=== PATIENT | female | born 1960 | race Caucasian/White ===

== ENCOUNTER 2018-12-02 16:43 | Inpatient (IN) ==
[2018-12-02 18:09] LABS: Basophils % 0.2 %; Nucleated Red Blood Cells 0.5 /100 WBC (0)
[2018-12-02 18:10] LABS: Eosinophils # 0.1 K/mcL (0.0-0.6); Eosinophils % 0.6 %; Hematocrit 15.6 % (35.3-44.9); Immature Granulocytes % 0.5 % (0-4); Lymphocytes # 1.2 K/mcL (0.6-4.6); Lymphocytes % 14.3 %; Mean Corpuscular HGB Conc 29.5 g/dL (31.6-35.5); Mean Corpuscular Hemoglobin 25.8 pg (28.0-33.3); Mean Corpuscular Volume 87.6 fL (83.0-100.0); Mean Platelet Volume 9.4 fL (9.4-12.4); Monocytes # 0.6 K/mcL (0.0-1.3); Monocytes % 6.7 %; Neutrophils # 6.5 K/mcL (1.6-8.9); Platelet Count 348 K/mcL (140-400); Red Blood Count 1.78 M/mcL (3.82-4.97); Red Cell Distribution Width 14.8 % (11.5-14.5); Segmented Neutrophils % 77.7 %
[2018-12-02 18:14] LABS: Hemoglobin 4.6 g/dL (11.5-15.4)
--- NOTE | 2018-12-02 18:15 | Emergency Department Note ---
Disposition Clinical Impression: Vaginal bleeding Disposition: Still a Patient Condition: Serious Forms: ED Satisfaction Letter Time of Disposition: 19:16 General Adult HPI - General Chief complaint: ED Vaginal Bleeding Stated complaint: Vaginal Bleeding Time Seen by Provider: 12/02/18 17:26 Source: patient Limitations: no limitations - History of Present Illness Pain Scale: 5 - Related Data Home Medications Medication Instructions Recorded Confirmed Amlodipine Besylate 2.5 mg PO DAWIT 06/21/18 08/18/18 Furosemide [Lasix] 20 mg PO DAILY 06/21/18 08/18/18 Metoprolol Succinate [Toprol Xl] 25 mg PO DAILY 06/21/18 08/18/18 Omeprazole [PriLOSEC] 40 mg PO DAILY 06/21/18 08/18/18 Venlafaxine XR (24 HR) [Effexor Xr] 150 mg PO DAILY 06/21/18 08/18/18 Ventolin Hfa 108 mcg IH Q6HR PRN 06/21/18 08/18/18 buPROPion HCl [Zyban] 300 mg PO DAILY 06/21/18 08/18/18 clonazePAM [Clonazepam] 0.5 mg PO DAILY 06/21/18 08/18/18 Previous Rx's Medication Instructions Recorded Clindamycin [Cleocin] 150 mg PO Q6HR #7 capsule 08/18/18 Allergies Allergy/AdvReac Type Severity Reaction Status Date / Time ciprofloxacin [From Cipro] AdvReac See Verified 11/27/15 09:46 Comments Penicillins [PCN] AdvReac See Verified 11/27/15 09:46 Comments sertraline [From Zoloft] AdvReac Confusion Verified 11/27/15 09:46 Sulfa (Sulfonamide AdvReac See Verified 11/27/15 09:46 Antibiotics) Comments Past Medical History - Past Medical History Medical history: Reports: asthma, coronary artery disease, GERD, hypertension Surgical history: Reports: , herniorrhaphy, orthopedic, other Psychiatric history: Reports: depression - Social History Smoking Status: Never smoker Smokeless Tobacco Status: No Alcohol use: Reports: none Drug use: Reports: none Physical Exam - General Limitations: no limitations General appearance: alert Course Vital Signs Temperature 98.4 F 12/02/18 16:45 Pulse Rate 89 12/02/18 16:45 Respiratory Rate 18 06/01/19 16:45 Blood Pressure 138/69 06/01/19 16:45 O2 Sat by Pulse Oximetry 100 12/02/18 16:45 Temperature 98.4 F 12/02/18 16:45 Pulse Rate 83 12/02/18 19:12 Respiratory Rate 16 12/02/18 19:12 Blood Pressure 139/73 12/02/18 19:12 O2 Sat by Pulse Oximetry 100 12/02/18 19:12 Oxygen Delivery Oxygen Delivery Room Air Medical Decision Making - Lab Data Result diagrams: 12/02/18 17:51 12/02/18 17:51 Lab Results 12/02/18 12/02/18 12/02/18 Range/Units 17:51 17:51 17:51 WBC 8.4 (4.3-11.1) K/mcL RBC 1.78 L (3.82-4.97) M/mcL Hgb 4.6 L* (11.5-15.4) g/dL Hct 15.6 L (35.3-44.9) % MCV 87.6 (83.0-100.0) fL MCH 25.8 L (28.0-33.3) pg MCHC 29.5 L (31.6-35.5) g/dL RDW 14.8 H (11.5-14.5) % Plt Count 348 (140-400) K/mcL MPV 9.4 (9.4-12.4) fL Immature Gran % 0.5 (0-4) % Seg Neutrophils % 77.7 % Lymphocytes % 14.3 % Monocytes % 6.7 % Eosinophils % 0.6 % Basophils % 0.2 % Neutrophils # 6.5 (1.6-8.9) K/mcL Lymphocytes # 1.2 (0.6-4.6) K/mcL Monocytes # 0.6 (0.0-1.3) K/mcL Eosinophils # 0.1 (0.0-0.6) K/mcL Basophils # 0.0 (0.0-0.2) K/mcL Nucleated RBCs/100 WBC 0.5 H (0) /100 WBC PT 22.8 H (9.4-12.1) Seconds INR 2.0 APTT 34.5 (26.0-36.0) Seconds Sodium 137 (136-145) mEq/L Potassium 4.0 (3.5-5.1) mEq/L Chloride 106 (98-107) mEq/L Carbon Dioxide 21 L (23-29) mEq/L BUN 13 (6-20) mg/dL Creatinine 0.98 (0.60-1.20) mg/dL Est GFR ( Amer) > 60 (> 60) Est GFR (Non-Af Amer) 58 L (> 60) BUN/Creatinine Ratio 13 (6-26) Glucose 107 H (70-105) mg/dL Calculated Osmolality 285 (280-300) Calcium 8.6 (8.6-10.3) mg/dL Troponin I < 0.03 (< 0.04) ng/mL Blood Type Antibody Screen Crossmatch 12/02/18 Range/Units 17:52 WBC (4.3-11.1) K/mcL RBC (3.82-4.97) M/mcL Hgb (11.5-15.4) g/dL Hct (35.3-44.9) % MCV (83.0-100.0) fL MCH (28.0-33.3) pg MCHC (31.6-35.5) g/dL RDW (11.5-14.5) % Plt Count (140-400) K/mcL MPV (9.4-12.4) fL Immature Gran % (0-4) % Seg Neutrophils % % Lymphocytes % % Monocytes % % Eosinophils % % Basophils % % Neutrophils # (1.6-8.9) K/mcL Lymphocytes # (0.6-4.6) K/mcL Monocytes # (0.0-1.3) K/mcL Eosinophils # (0.0-0.6) K/mcL Basophils # (0.0-0.2) K/mcL Nucleated RBCs/100 WBC (0) /100 WBC PT (9.4-12.1) Seconds INR APTT (26.0-36.0) Seconds Sodium (136-145) mEq/L Potassium (3.5-5.1) mEq/L Chloride (98-107) mEq/L Carbon Dioxide (23-29) mEq/L BUN (6-20) mg/dL Creatinine (0.60-1.20) mg/dL Est GFR ( Amer) (> 60) Est GFR (Non-Af Amer) (> 60) BUN/Creatinine Ratio (6-26) Glucose (70-105) mg/dL Calculated Osmolality (280-300) Calcium (8.6-10.3) mg/dL Troponin I (< 0.04) ng/mL Blood Type B POSITIVE Antibody Screen NEGATIVE Crossmatch See Detail Critical Care Time Critical Care Time: Yes Total Critical Care Time: 40 Attestation: Critical care performed: Time is exclusive of separately billable procedures. Time includes: direct patient care, patient reassessment, coordination of patient care, interpretation of data (laboratory data, radiology data, and respiratory data), review of patient's medical records, medical consultation and documentation of patient care. Procedures included in critical care time: Procedures excluded from critical care time: Attestation Statement - Attestation Attestation: I examined this patient and my medical decision-making was reviewed with the Resident Physician. I agree with the documented findings, disposition and treatment plan as described except to the extent set forth below. Patient to the ED with vaginal bleeding. Onset in October. It is progressively getting worse. She is bleeding on and off. She is now bleeding through a pad in less than an hour. Patient had not had a period in 6 months before this started. On exam she is pale. Abdomen soft with some mild lower abdominal tenderness.. Plan. Basic labs to type and screen. Ultrasound. We will discuss with BOILER OPERATOR. Hemoglobin is 4. Transfusion ordered. Patient is agreeable to this. Patient be admitted for transfusion. Ultrasound is still pending at this time. Patient is signed out to doctors Maritza and Evette Bravo pending ultrasound results and ad mission for transfusion. EKG normal sinus at 79. Normal ST segments. Normal voltage. Motion artifact. Unchanged from EKG in 2017.
[2018-12-02 18:17] LABS: Prothrombin Time 22.8 Seconds (9.4-12.1)
[2018-12-02 18:20] LABS: Activated Partial Thrombo Time 34.5 Seconds (26.0-36.0)
[2018-12-02 18:25] LABS: BUN/Creatinine Ratio 13 (6-26); Blood Urea Nitrogen 13 mg/dL (6-20); Calcium 8.6 mg/dL (8.6-10.3); Carbon Dioxide 21 mEq/L (23-29); Chloride 106 mEq/L (98-107); Glucose 107 mg/dL (70-105); Osmolality,Calculated 285 (280-300); Sodium 137 mEq/L (136-145); eGFR For Non-African Americans 58 (> 60)
[2018-12-02 18:33] LABS: Troponin I < 0.03 ng/mL (< 0.04)
--- NOTE | 2018-12-02 18:37 | Emergency Department Note ---
Disposition Forms: ED Satisfaction Letter General Adult HPI - General Chief complaint: ED Vaginal Bleeding Stated complaint: Vaginal Bleeding Time Seen by Provider: 12/02/18 17:26 Source: patient Limitations: no limitations Nursing Notes Reviewed: Yes Vital Signs Reviewed: Yes - History of Present Illness Pain Scale: 5 - Related Data Home Medications Medication Instructions Recorded Confirmed Amlodipine Besylate 2.5 mg PO DAWIT 06/21/18 08/18/18 Furosemide [Lasix] 20 mg PO DAILY 06/21/18 08/18/18 Metoprolol Succinate [Toprol Xl] 25 mg PO DAILY 06/21/18 08/18/18 Omeprazole [PriLOSEC] 40 mg PO DAILY 06/21/18 08/18/18 Venlafaxine XR (24 HR) [Effexor Xr] 150 mg PO DAILY 06/21/18 08/18/18 Ventolin Hfa 108 mcg IH Q6HR PRN 06/21/18 08/18/18 buPROPion HCl [Zyban] 300 mg PO DAILY 06/21/18 08/18/18 clonazePAM [Clonazepam] 0.5 mg PO DAILY 06/21/18 08/18/18 Previous Rx's Medication Instructions Recorded Clindamycin [Cleocin] 150 mg PO Q6HR #7 capsule 08/18/18 Allergies Allergy/AdvReac Type Severity Reaction Status Date / Time ciprofloxacin [From Cipro] AdvReac See Verified 11/27/15 09:46 Comments Penicillins [PCN] AdvReac See Verified 11/27/15 09:46 Comments sertraline [From Zoloft] AdvReac Confusion Verified 11/27/15 09:46 Sulfa (Sulfonamide AdvReac See Verified 11/27/15 09:46 Antibiotics) Comments Past Medical History - Past Medical History Medical history: Reports: asthma, coronary artery disease, GERD, hypertension Surgical history: Reports: , herniorrhaphy, orthopedic, other Psychiatric history: Reports: depression - Social History Smoking Status: Never smoker Smokeless Tobacco Status: No Alcohol use: Reports: none Drug use: Reports: none Physical Exam - General Limitations: no limitations General appearance: alert Course Vital Signs Temperature 98.4 F 12/02/18 16:45 Pulse Rate 89 12/02/18 16:45 Respiratory Rate 18 12/02/18 16:45 Blood Pressure 138/69 12/02/18 16:45 O2 Sat by Pulse Oximetry 100 12/02/18 16:45 Temperature 98.4 F 12/02/18 16:45 Pulse Rate 89 12/02/18 16:45 Respiratory Rate 18 12/02/18 16:45 Blood Pressure 138/69 12/02/18 16:45 O2 Sat by Pulse Oximetry 100 12/02/18 16:45 Oxygen Delivery Oxygen Delivery Room Air Medical Decision Making - Lab Data Result diagrams: 12/02/18 17:51 12/02/18 17:51 Lab Results 12/02/18 12/02/18 12/02/18 Range/Units 17:51 17:51 17:51 WBC 8.4 (4.3-11.1) K/mcL RBC 1.78 L (3.82-4.97) M/mcL Hgb 4.6 L* (11.5-15.4) g/dL Hct 15.6 L (35.3-44.9) % MCV 87.6 (83.0-100.0) fL MCH 25.8 L (28.0-33.3) pg MCHC 29.5 L (31.6-35.5) g/dL RDW 14.8 H (11.5-14.5) % Plt Count 348 (140-400) K/mcL MPV 9.4 (9.4-12.4) fL Immature Gran % 0.5 (0-4) % Seg Neutrophils % 77.7 % Lymphocytes % 14.3 % Monocytes % 6.7 % Eosinophils % 0.6 % Basophils % 0.2 % Neutrophils # 6.5 (1.6-8.9) K/mcL Lymphocytes # 1.2 (0.6-4.6) K/mcL Monocytes # 0.6 (0.0-1.3) K/mcL Eosinophils # 0.1 (0.0-0.6) K/mcL Basophils # 0.0 (0.0-0.2) K/mcL Nucleated RBCs/100 WBC 0.5 H (0) /100 WBC PT 22.8 H (9.4-12.1) Seconds INR 2.0 APTT 34.5 (26.0-36.0) Seconds Sodium 137 (136-145) mEq/L Potassium 4.0 (3.5-5.1) mEq/L Chloride 106 (98-107) mEq/L Carbon Dioxide 21 L (23-29) mEq/L BUN 13 (6-20) mg/dL Creatinine 0.98 (0.60-1.20) mg/dL Est GFR ( Amer) > 60 (> 60) Est GFR (Non-Af Amer) 58 L (> 60) BUN/Creatinine Ratio 13 (6-26) Glucose 107 H (70-105) mg/dL Calculated Osmolality 285 (280-300) Calcium 8.6 (8.6-10.3) mg/dL Troponin I < 0.03 (< 0.04) ng/mL Blood Type Crossmatch 12/02/18 Range/Units 17:52 WBC (4.3-11.1) K/mcL RBC (3.82-4.97) M/mcL Hgb (11.5-15.4) g/dL Hct (35.3-44.9) % MCV (83.0-100.0) fL MCH (28.0-33.3) pg MCHC (31.6-35.5) g/dL RDW (11.5-14.5) % Plt Count (140-400) K/mcL MPV (9.4-12.4) fL Immature Gran % (0-4) % Seg Neutrophils % % Lymphocytes % % Monocytes % % Eosinophils % % Basophils % % Neutrophils # (1.6-8.9) K/mcL Lymphocytes # (0.6-4.6) K/mcL Monocytes # (0.0-1.3) K/mcL Eosinophils # (0.0-0.6) K/mcL Basophils # (0.0-0.2) K/mcL Nucleated RBCs/100 WBC (0) /100 WBC PT (9.4-12.1) Seconds INR APTT (26.0-36.0) Seconds Sodium (136-145) mEq/L Potassium (3.5-5.1) mEq/L Chloride (98-107) mEq/L Carbon Dioxide (23-29) mEq/L BUN (6-20) mg/dL Creatinine (0.60-1.20) mg/dL Est GFR ( Amer) (> 60) Est GFR (Non-Af Amer) (> 60) BUN/Creatinine Ratio (6-26) Glucose (70-105) mg/dL Calculated Osmolality (280-300) Calcium (8.6-10.3) mg/dL Troponin I (< 0.04) ng/mL Blood Type B POSITIVE Crossmatch See Detail Attestation Statement - Attestation Attestation: I examined this patient and my medical decision-making was reviewed with the Resident Physician. I agree with the documented findings, disposition and treatment plan as described except to the extent set forth below.
[2018-12-02] MEDS ORDERED: 0.9 % Sodium Chloride 250 ML ONE (19:21)
--- NOTE | 2018-12-02 19:41 | Emergency Department Note ---
Disposition Clinical Impression: Vaginal bleeding Anemia Qualifiers: Anemia type: unspecified type Qualified Code(s): D64.9 - Anemia, unspecified Disposition: Admitted As Inpatient Condition: Fair Referrals: Esperanza Gutierrez CNP [Primary Care Provider] - Forms: ED Satisfaction Letter Time of Disposition: 19:41 General Adult HPI - General Chief complaint: ED Vaginal Bleeding Stated complaint: Vaginal Bleeding Time Seen by Provider: 12/02/18 17:26 Source: patient Limitations: no limitations - History of Present Illness Pain Scale: 5 - Related Data Home Medications Medication Instructions Recorded Confirmed Amlodipine Besylate 2.5 mg PO DAWIT 06/21/18 08/18/18 Furosemide [Lasix] 20 mg PO DAILY 06/21/18 08/18/18 Metoprolol Succinate [Toprol Xl] 25 mg PO DAILY 06/21/18 08/18/18 Omeprazole [PriLOSEC] 40 mg PO DAILY 06/21/18 08/18/18 Venlafaxine XR (24 HR) [Effexor Xr] 150 mg PO DAILY 06/21/18 08/18/18 Ventolin Hfa 108 mcg IH Q6HR PRN 06/21/18 08/18/18 buPROPion HCl [Zyban] 300 mg PO DAILY 06/21/18 08/18/18 clonazePAM [Clonazepam] 0.5 mg PO DAILY 06/21/18 08/18/18 Previous Rx's Medication Instructions Recorded Clindamycin [Cleocin] 150 mg PO Q6HR #7 capsule 08/18/18 Allergies Allergy/AdvReac Type Severity Reaction Status Date / Time ciprofloxacin [From Cipro] AdvReac See Verified 11/27/15 09:46 Comments Penicillins [PCN] AdvReac See Verified 11/27/15 09:46 Comments sertraline [From Zoloft] AdvReac Confusion Verified 11/27/15 09:46 Sulfa (Sulfonamide AdvReac See Verified 11/27/15 09:46 Antibiotics) Comments Past Medical History - Past Medical History Medical history: Reports: asthma, coronary artery disease, GERD, hypertension Surgical history: Reports: , herniorrhaphy, orthopedic, other Psychiatric history: Reports: depression - Social History Smoking Status: Never smoker Smokeless Tobacco Status: No Alcohol use: Reports: none Drug use: Reports: none Physical Exam - General Limitations: no limitations General appearance: alert Course Vital Signs Temperature 98.4 F 12/02/18 16:45 Pulse Rate 89 12/02/18 16:45 Respiratory Rate 18 12/02/18 16:45 Blood Pressure 138/69 12/02/18 16:45 O2 Sat by Pulse Oximetry 100 12/02/18 16:45 Temperature 98.4 F 12/02/18 16:45 Pulse Rate 83 12/02/18 19:12 Respiratory Rate 16 12/02/18 19:12 Blood Pressure 139/73 12/02/18 19:12 O2 Sat by Pulse Oximetry 100 12/02/18 19:12 Oxygen Delivery Oxygen Delivery Room Air Medical Decision Making - Lab Data Result diagrams: 12/02/18 17:51 12/02/18 17:51 Lab Results 12/02/18 12/02/18 12/02/18 Range/Units 17:51 17:51 17:51 WBC 8.4 (4.3-11.1) K/mcL RBC 1.78 L (3.82-4.97) M/mcL Hgb 4.6 L* (11.5-15.4) g/dL Hct 15.6 L (35.3-44.9) % MCV 87.6 (83.0-100.0) fL MCH 25.8 L (28.0-33.3) pg MCHC 29.5 L (31.6-35.5) g/dL RDW 14.8 H (11.5-14.5) % Plt Count 348 (140-400) K/mcL MPV 9.4 (9.4-12.4) fL Immature Gran % 0.5 (0-4) % Seg Neutrophils % 77.7 % Lymphocytes % 14.3 % Monocytes % 6.7 % Eosinophils % 0.6 % Basophils % 0.2 % Neutrophils # 6.5 (1.6-8.9) K/mcL Lymphocytes # 1.2 (0.6-4.6) K/mcL Monocytes # 0.6 (0.0-1.3) K/mcL Eosinophils # 0.1 (0.0-0.6) K/mcL Basophils # 0.0 (0.0-0.2) K/mcL Nucleated RBCs/100 WBC 0.5 H (0) /100 WBC PT 22.8 H (9.4-12.1) Seconds INR 2.0 APTT 34.5 (26.0-36.0) Seconds Sodium 137 (136-145) mEq/L Potassium 4.0 (3.5-5.1) mEq/L Chloride 106 (98-107) mEq/L Carbon Dioxide 21 L (23-29) mEq/L BUN 13 (6-20) mg/dL Creatinine 0.98 (0.60-1.20) mg/dL Est GFR ( Amer) > 60 (> 60) Est GFR (Non-Af Amer) 58 L (> 60) BUN/Creatinine Ratio 13 (6-26) Glucose 107 H (70-105) mg/dL Calculated Osmolality 285 (280-300) Calcium 8.6 (8.6-10.3) mg/dL Troponin I < 0.03 (< 0.04) ng/mL Blood Type Antibody Screen Crossmatch 12/02/18 Range/Units 17:52 WBC (4.3-11.1) K/mcL RBC (3.82-4.97) M/mcL Hgb (11.5-15.4) g/dL Hct (35.3-44.9) % MCV (83.0-100.0) fL MCH (28.0-33.3) pg MCHC (31.6-35.5) g/dL RDW (11.5-14.5) % Plt Count (140-400) K/mcL MPV (9.4-12.4) fL Immature Gran % (0-4) % Seg Neutrophils % % Lymphocytes % % Monocytes % % Eosinophils % % Basophils % % Neutrophils # (1.6-8.9) K/mcL Lymphocytes # (0.6-4.6) K/mcL Monocytes # (0.0-1.3) K/mcL Eosinophils # (0.0-0.6) K/mcL Basophils # (0.0-0.2) K/mcL Nucleated RBCs/100 WBC (0) /100 WBC PT (9.4-12.1) Seconds INR APTT (26.0-36.0) Seconds Sodium (136-145) mEq/L Potassium (3.5-5.1) mEq/L Chloride (98-107) mEq/L Carbon Dioxide (23-29) mEq/L BUN (6-20) mg/dL Creatinine (0.60-1.20) mg/dL Est GFR ( Amer) (> 60) Est GFR (Non-Af Amer) (> 60) BUN/Creatinine Ratio (6-26) Glucose (70-105) mg/dL Calculated Osmolality (280-300) Calcium (8.6-10.3) mg/dL Troponin I (< 0.04) ng/mL Blood Type B POSITIVE Antibody Screen NEGATIVE Crossmatch See Detail Attestation Statement - Attestation Attestation: I examined this patient and my medical decision-making was reviewed with the Resident Physician. I agree with the documented findings, disposition and treatment plan as described except to the extent set forth below. accepted sign out from Dr. Saleh (day team) and plan is to folowu on pelvic ultrasound and then consult with OBGYN. She will require transfusion as she is 4.9 on hgb and is currently being tranfused 2 units. Otherwise stable. And then admit to medicine to OBGYN
--- NOTE | 2018-12-02 19:45 | Emergency Department Note ---
Disposition Clinical Impression: Vaginal bleeding Anemia Qualifiers: Anemia type: unspecified type Qualified Code(s): D64.9 - Anemia, unspecified Disposition: Admitted As Inpatient Condition: Fair Referrals: Esperanza Gutierrez CNP [Primary Care Provider] - Forms: ED Satisfaction Letter Time of Disposition: 19:50 General Adult HPI - General Chief complaint: ED Vaginal Bleeding Stated complaint: Vaginal Bleeding Time Seen by Provider: 12/02/18 17:26 Source: patient Mode of arrival: ambulatory Limitations: no limitations Nursing Notes Reviewed: Yes Vital Signs Reviewed: Yes - History of Present Illness HPI Narrative: Patient is a 58-year-old female currently on Xeralto for a DVT presents to the ER for evaluation of vaginal bleeding that began the first week of October. She states since that time she has had somewhat continuous but waxing and waning intensity of vaginal bleeding and has a follow-up appointment next Tuesday however she starting to feel lightheaded and have chest pain with exertion and her family's notes that she appears pale. States she has never had a pelvic ultrasound before. Pain Scale: 5 - Related Data Home Medications Medication Instructions Recorded Confirmed Amlodipine Besylate 2.5 mg PO DAWIT 06/21/18 08/18/18 Furosemide [Lasix] 20 mg PO DAILY 06/21/18 08/18/18 Metoprolol Succinate [Toprol Xl] 25 mg PO DAILY 06/21/18 08/18/18 Omeprazole [PriLOSEC] 40 mg PO DAILY 06/21/18 08/18/18 Venlafaxine XR (24 HR) [Effexor Xr] 150 mg PO DAILY 06/21/18 08/18/18 Ventolin Hfa 108 mcg IH Q6HR PRN 06/21/18 08/18/18 buPROPion HCl [Zyban] 300 mg PO DAILY 06/21/18 08/18/18 clonazePAM [Clonazepam] 0.5 mg PO DAILY 06/21/18 08/18/18 Previous Rx's Medication Instructions Recorded Clindamycin [Cleocin] 150 mg PO Q6HR #7 capsule 08/18/18 Allergies Allergy/AdvReac Type Severity Reaction Status Date / Time ciprofloxacin [From Cipro] AdvReac See Verified 11/27/15 09:46 Comments Penicillins [PCN] AdvReac See Verified 11/27/15 09:46 Comments sertraline [From Zoloft] AdvReac Confusion Verified 11/27/15 09:46 Sulfa (Sulfonamide AdvReac See Verified 11/27/15 09:46 Antibiotics) Comments All systems ED: reviewed and negative except as stated. Review of Systems: As Per HPI Constitutional: Denies: fever Cardiovascular: Denies: chest pain Respiratory: Reports: dyspnea. Denies: cough, sputum production Gastrointestinal: Denies: abdominal pain, nausea, vomiting, diarrhea Genitourinary: Reports: abnormal menses Past Medical History - Past Medical History Attestation: Yes The following information was validated with the patient. Medical history: Reports: asthma, coronary artery disease, GERD, hypertension Surgical history: Reports: , herniorrhaphy, orthopedic, other Psychiatric history: Reports: depression - Social History Smoking Status: Never smoker Smokeless Tobacco Status: No Alcohol use: Reports: none Drug use: Reports: none Physical Exam CONSTITUTIONAL: Alert and oriented X3. Pale in color. HEAD: Normocephalic; atraumatic. EYES: PERRL, no scleral icterus. NOSE: The nose is normal in appearance without rhinorrhea RESP: Normal chest excursion with respiration; breath sounds clear and equal bilaterally; no wheezes, rhonchi, or rales CARD: Regular rhythm, without murmurs, rub or gallop ABD: Non-distended; non-tender, soft,without rigidity, rebound or guarding SKIN: Normal for age and race; warm and dry; no apparent lesions - General Limitations: no limitations General appearance: alert Course Course Narrative: Patient underwent evaluation for anemia as well as a transvaginal ultrasound to evaluate her endometrial stripe. Her hemoglobin was in the range of for such she was ordered a type and screen as well as 2 packed red blood cell units. Ultrasound was pending in signed out to the night team. Vital Signs Temperature 98.4 F 12/02/18 16:45 Pulse Rate 89 12/02/18 16:45 Respiratory Rate 18 12/02/18 16:45 Blood Pressure 138/69 12/02/18 16:45 O2 Sat by Pulse Oximetry 100 12/02/18 16:45 Temperature 98.4 F 12/02/18 16:45 Pulse Rate 83 12/02/18 19:12 Respiratory Rate 16 12/02/18 19:12 Blood Pressure 139/73 12/02/18 19:12 O2 Sat by Pulse Oximetry 100 12/02/18 19:12 Oxygen Delivery Oxygen Delivery Room Air Medical Decision Making - Medical Records Medical records reviewed: Yes I reviewed the patient's medical records. - Lab Data Lab results reviewed: Yes I reviewed the patient's lab results. Result diagrams: 12/02/18 17:51 12/02/18 17:51 Lab Results 12/02/18 12/02/18 12/02/18 Range/Units 17:51 17:51 17:51 WBC 8.4 (4.3-11.1) K/mcL RBC 1.78 L (3.82-4.97) M/mcL Hgb 4.6 L* (11.5-15.4) g/dL Hct 15.6 L (35.3-44.9) % MCV 87.6 (83.0-100.0) fL MCH 25.8 L (28.0-33.3) pg MCHC 29.5 L (31.6-35.5) g/dL RDW 14.8 H (11.5-14.5) % Plt Count 348 (140-400) K/mcL MPV 9.4 (9.4-12.4) fL Immature Gran % 0.5 (0-4) % Seg Neutrophils % 77.7 % Lymphocytes % 14.3 % Monocytes % 6.7 % Eosinophils % 0.6 % Basophils % 0.2 % Neutrophils # 6.5 (1.6-8.9) K/mcL Lymphocytes # 1.2 (0.6-4.6) K/mcL Monocytes # 0.6 (0.0-1.3) K/mcL Eosinophils # 0.1 (0.0-0.6) K/mcL Basophils # 0.0 (0.0-0.2) K/mcL Nucleated RBCs/100 WBC 0.5 H (0) /100 WBC PT 22.8 H (9.4-12.1) Seconds INR 2.0 APTT 34.5 (26.0-36.0) Seconds Sodium 137 (136-145) mEq/L Potassium 4.0 (3.5-5.1) mEq/L Chloride 106 (98-107) mEq/L Carbon Dioxide 21 L (23-29) mEq/L BUN 13 (6-20) mg/dL Creatinine 0.98 (0.60-1.20) mg/dL Est GFR ( Amer) > 60 (> 60) Est GFR (Non-Af Amer) 58 L (> 60) BUN/Creatinine Ratio 13 (6-26) Glucose 107 H (70-105) mg/dL Calculated Osmolality 285 (280-300) Calcium 8.6 (8.6-10.3) mg/dL Troponin I < 0.03 (< 0.04) ng/mL Blood Type Antibody Screen Crossmatch 12/02/18 Range/Units 17:52 WBC (4.3-11.1) K/mcL RBC (3.82-4.97) M/mcL Hgb (11.5-15.4) g/dL Hct (35.3-44.9) % MCV (83.0-100.0) fL MCH (28.0-33.3) pg MCHC (31.6-35.5) g/dL RDW (11.5-14.5) % Plt Count (140-400) K/mcL MPV (9.4-12.4) fL Immature Gran % (0-4) % Seg Neutrophils % % Lymphocytes % % Monocytes % % Eosinophils % % Basophils % % Neutrophils # (1.6-8.9) K/mcL Lymphocytes # (0.6-4.6) K/mcL Monocytes # (0.0-1.3) K/mcL Eosinophils # (0.0-0.6) K/mcL Basophils # (0.0-0.2) K/mcL Nucleated RBCs/100 WBC (0) /100 WBC PT (9.4-12.1) Seconds INR APTT (26.0-36.0) Seconds Sodium (136-145) mEq/L Potassium (3.5-5.1) mEq/L Chloride (98-107) mEq/L Carbon Dioxide (23-29) mEq/L BUN (6-20) mg/dL Creatinine (0.60-1.20) mg/dL Est GFR ( Amer) (> 60) Est GFR (Non-Af Amer) (> 60) BUN/Creatinine Ratio (6-26) Glucose (70-105) mg/dL Calculated Osmolality (280-300) Calcium (8.6-10.3) mg/dL Troponin I (< 0.04) ng/mL Blood Type B POSITIVE Antibody Screen NEGATIVE Crossmatch See Detail - Radiology Data Radiology results reviewed: Yes I reviewed the patient's radiology results. Chest X-Ray 12/02/18 17:53 IMPRESSION: Cardiomegaly. No radiographic evidence of acute pulmonary disease. D/ / Deandre Asencio / Deandre Asencio Interpreting Provider: Deandre Asencio Pelvis Ultrasound 12/02/18 17:53 IMPRESSION: Abnormal appearance of the uterus. Adenomyosis is considered. Malignancy of the endometrium with invasion into the myometrium also is in the differential diagnosis, versus polyposis of the endometrium, or submucosal fibroid. Recommend further evaluation with a pelvic MRI examination. Ovaries could not be definitively visualized by ultrasound. These could be assessed at the time of the above MRI D/ / Mynor Chatman MD / Mynor Chatman MD Interpreting Provider: Mynor Chatman MD Nicky - Nicky Situation: Demographics, MOA Background: Presenting Complaint, Relevant PMH, Meds, & Allergies Assessment: Vital Signs, Course and respsone to treatment, Exam Concerns, Patient/Family Expectation, Pertinant Lab Results, Outstanding Labs Recommendation: Barrier(s) to disposition, Recommendation based on pending st udies, treatments, or consults Nicky Report Given to: David Saunders Repor Time: 19:50
--- NOTE | 2018-12-02 19:48 | Emergency Department Note ---
Disposition Clinical Impression: Vaginal bleeding Anemia Qualifiers: Anemia type: unspecified type Qualified Code(s): D64.9 - Anemia, unspecified Disposition: Admitted As Inpatient Condition: Undetermined Referrals: Esperanza Gutierrez CNP [Primary Care Provider] - Forms: ED Satisfaction Letter Time of Disposition: 20:48 Female Urogenital HPI - General Chief complaint: ED Vaginal Bleeding Stated complaint: Vaginal Bleeding Time Seen by Provider: 12/02/18 17:26 Source: patient Mode of arrival: ambulatory Limitations: no limitations Nursing Notes Reviewed: Yes Vital Signs Reviewed: Yes - History of Present Illness HPI Narrative: 58-year-old female who is a signout from the day team. Briefly, this is a 58-year-old female with history of roughly 2 months of vaginal bleeding. On Xarelto for history of lower extremity DVT. She arrives to the emergency department with greater than 1 pad per hour or vaginal bleeding. She has an apparent appointment set up with [facility] within the next 2 weeks. Patient's noted to have a hemoglobin here 4.6 and will be transferred with 2 units of packed red blood cells. Patient is not tachycardic or hypotensive. She is otherwise resting comfortably. Ultrasound demonstrates concern for malignancy versus adenomyosis. Consultation with [facility] currently pending at this time. Please see further note from previous physician regarding further details. - Related Data Home Medications Medication Instructions Recorded Confirmed Amlodipine Besylate 2.5 mg PO DAILY 06/21/18 08/18/18 Furosemide [Lasix] 20 mg PO DAILY 06/21/18 12/02/18 Metoprolol Succinate [Toprol Xl] 25 mg PO DAILY 06/21/18 12/02/18 Omeprazole [PriLOSEC] 40 mg PO DAILY 06/21/18 12/02/18 Venlafaxine XR (24 HR) [Effexor Xr] 150 mg PO HS 06/21/18 12/02/18 Ventolin Hfa 108 mcg IH Q6HR PRN 06/21/18 12/02/18 buPROPion HCl [Zyban] 300 mg PO DAILY 06/21/18 12/02/18 clonazePAM [Clonazepam] 0.5 mg PO HS 06/21/18 12/02/18 Rivaroxaban [Xarelto] 20 mg PO DAILY 12/02/18 12/02/18 Allergies Allergy/AdvReac Type Severity Reaction Status Date / Time ciprofloxacin [From Cipro] AdvReac Rash Verified 12/02/18 20:06 Penicillins [PCN] AdvReac See Verified 12/02/18 20:06 Comments sertraline [From Zoloft] AdvReac Confusion Verified 12/02/18 20:06 Sulfa (Sulfonamide AdvReac Rash Verified 12/02/18 20:06 Antibiotics) All systems ED: reviewed and negative except as stated. Constitutional: Denies: fever Cardiovascular: Denies: chest pain Respiratory: Reports: dyspnea. Denies: cough, sputum production Gastrointestinal: Denies: abdominal pain, nausea, vomiting, diarrhea Genitourinary: Reports: abnormal menses Past Medical History - Past Medical History Source: old records reviewed Medical history: Reports: asthma, coronary artery disease, GERD, hypertension Surgical history: Reports: , herniorrhaphy, orthopedic, other Psychiatric history: Reports: depression - Social History Smoking Status: Never smoker Smokeless Tobacco Status: No Alcohol use: Reports: none Drug use: Reports: none Physical Exam - General Limitations: no limitations General appearance: alert, in no apparent distress - Head Head exam: atraumatic, normocephalic, normal inspection - Eye Eye exam: Present: normal appearance, PERRL, EOMI - ENT ENT exam: normal exam, normal oropharynx, mucous membranes moist - Neck Neck exam: Present: normal inspection, full ROM, trachea midline - Chest Chest inspection: Present: normal inspection, symmetric chest wall rise - Respiratory Respiratory exam: Present: normal lung sounds bilaterally - Cardiovascular Cardiovascular exam: Present: regular rate, normal rhythm - Abdominal Exam Abdominal exam: Present: soft, Non-Tender. Absent: tenderness, distention, guarding, rebound, rigidity - Extremities Exam Extremities exam: Present: normal inspection, full ROM, normal capillary refill. Absent: tenderness, pedal edema - Neurological Exam Neurological exam: Present: alert, oriented X3 - Skin Skin exam: Present: warm, dry, intact, pallor Course Vital Signs Temperature 98.4 F 12/02/18 16:45 Pulse Rate 89 12/02/18 16:45 Respiratory Rate 18 12/02/18 16:45 Blood Pressure 138/69 12/02/18 16:45 O2 Sat by Pulse Oximetry 100 12/02/18 16:45 Temperature 98.1 F 12/02/18 20:08 Pulse Rate 77 12/02/18 20:31 Respiratory Rate 16 12/02/18 20:31 Blood Pressure 102/67 12/02/18 20:31 O2 Sat by Pulse Oximetry 100 12/02/18 20:31 Oxygen Delivery Oxygen Delivery Room Air Urogenital-Female - MDM Narrative Medical decision making narrative: I consulted [facility] regarding patient's care. I spoke with Dr. Tamayo recommended transfusing for not just 2 units of blood and give the patient med oxine progesterone. Patient will be accepted to their service for further care. No further questions or concerns noted at this time. - Lab Data Lab results reviewed: Yes I reviewed the patient's lab results. Result diagrams: 12/02/18 17:51 12/02/18 17:51 Lab Results 12/02/18 12/02/18 12/02/18 Range/Units 17:51 17:51 17:51 WBC 8.4 (4.3-11.1) K/mcL RBC 1.78 L (3.82-4.97) M/mcL Hgb 4.6 L* (11.5-15.4) g/dL Hct 15.6 L (35.3-44.9) % MCV 87.6 (83.0-100.0) fL MCH 25.8 L (28.0-33.3) pg MCHC 29.5 L (31.6-35.5) g/dL RDW 14.8 H (11.5-14.5) % Plt Count 348 (140-400) K/mcL MPV 9.4 (9.4-12.4) fL Immature Gran % 0.5 (0-4) % Seg Neutrophils % 77.7 % Lymphocytes % 14.3 % Monocytes % 6.7 % Eosinophils % 0.6 % Basophils % 0.2 % Neutrophils # 6.5 (1.6-8.9) K/mcL Lymphocytes # 1.2 (0.6-4.6) K/mcL Monocytes # 0.6 (0.0-1.3) K/mcL Eosinophils # 0.1 (0.0-0.6) K/mcL Basophils # 0.0 (0.0-0.2) K/mcL Nucleated RBCs/100 WBC 0.5 H (0) /100 WBC PT 22.8 H (9.4-12.1) Seconds INR 2.0 APTT 34.5 (26.0-36.0) Seconds Sodium 137 (136-145) mEq/L Potassium 4.0 (3.5-5.1) mEq/L Chloride 106 (98-107) mEq/L Carbon Dioxide 21 L (23-29) mEq/L BUN 13 (6-20) mg/dL Creatinine 0.98 (0.60-1.20) mg/dL Est GFR ( Amer) > 60 (> 60) Est GFR (Non-Af Amer) 58 L (> 60) BUN/Creatinine Ratio 13 (6-26) Glucose 107 H (70-105) mg/dL Calculated Osmolality 285 (280-300) Calcium 8.6 (8.6-10.3) mg/dL Troponin I < 0.03 (< 0.04) ng/mL Blood Type Antibody Screen Crossmatch 12/02/18 Range/Units 17:52 WBC (4.3-11.1) K/mcL RBC (3.82-4.97) M/mcL Hgb (11.5-15.4) g/dL Hct (35.3-44.9) % MCV (83.0-100.0) fL MCH (28.0-33.3) pg MCHC (31.6-35.5) g/dL RDW (11.5-14.5) % Plt Count (140-400) K/mcL MPV (9.4-12.4) fL Immature Gran % (0-4) % Seg Neutrophils % % Lymphocytes % % Monocytes % % Eosinophils % % Basophils % % Neutrophils # (1.6-8.9) K/mcL Lymphocytes # (0.6-4.6) K/mcL Monocytes # (0.0-1.3) K/mcL Eosinophils # (0.0-0.6) K/mcL Basophils # (0.0-0.2) K/mcL Nucleated RBCs/100 WBC (0) /100 WBC PT (9.4-12.1) Seconds INR APTT (26.0-36.0) Seconds Sodium (136-145) mEq/L Potassium (3.5-5.1) mEq/L Chloride (98-107) mEq/L Carbon Dioxide (23-29) mEq/L BUN (6-20) mg/dL Creatinine (0.60-1.20) mg/dL Est GFR ( Amer) (> 60) Est GFR (Non-Af Amer) (> 60) BUN/Creatinine Ratio (6-26) Glucose (70-105) mg/dL Calculated Osmolality (280-300) Calcium (8.6-10.3) mg/dL Troponin I (< 0.04) ng/mL Blood Type B POSITIVE Antibody Screen NEGATIVE Crossmatch See Detail - Radiology Data Radiology results reviewed: Yes I reviewed the patient's radiology results. Chest X-Ray 12/02/18 17:53 IMPRESSION: Cardiomegaly. No radiographic evidence of acute pulmonary disease. D/ / Deandre Asencio / Deandre Asencio Interpreting Provider: Deandre Asencio Pelvis Ultrasound 12/02/18 17:53 IMPRESSION: Abnormal appearance of the uterus. Adenomyosis is considered. Malignancy of the endometrium with invasion into the myometrium also is in the differential diagnosis, versus polyposis of the endometrium, or submucosal fibroid. Recommend further evaluation with a pelvic MRI examination. Ovaries could not be definitively visualized by ultrasound. These could be assessed at the time of the above MRI D/ / Mynor Chatman MD / Mynor Chatman MD Interpreting Provider: Mynor Chatman MD
--- NOTE | 2018-12-02 21:49 | OB/GYN History & Physical ---
Date of Encounter: 12/02/18 Time of Encounter: 21:47 Assessment and Plan (1) Vaginal bleeding Current visit: Yes Status: Acute 58 y/o with vaginal bleeding, possible submucosal fibroid vs endometrial polyp vs endometrial malignancy Plan: I'll transfuse 4 units of PRBCs, she'll continue with medroxyprogesterone 20mg TID x 7 days, I'll hold off on her Xarelto as she was scheduled to stop it this month, she'll still have to see medicine If she's stable, she'll be discharged and I'll see her in the office this week, ok for regular diet of note SSE showed about 100cc of clot from the vault without active bleeding, otherwise normal findings History of Present Illness HPI: Ms. Cartagena is a 58 year old female who presented to the ED with vaginal bleeding since October 24. In Aug, she had knee surgery and developed a DVT shortly after. She was placed on 20mg of Xarelto. She reports changing several pads daily and passing large clots. She does not report pelvic pain but says she has back pain associated with her bleeding. Now her Hgb is 4. Her only complaint is that she is dizzy upon exertion. U/S was done today which was inconclusive suggesting submucosal fibroid, adenomyosis, endometrial polyp or malignancy. She denies any urinary, vaginal or gastrointestinal complaints presently. Past Med Surg Social Fam HX - Past Medical History Medical history: asthma, coronary artery disease, GERD, hypertension Additional medical history: lung nodule Psychiatric history: depression - Past Surgical History Surgical History: , herniorrhaphy, orthopedic, other Additional surgical history: colonoscopy, egd - Social History Smoking Status: Never smoker Smokeless Tobacco Status: No Alcohol use: none Drug use: none Obstetrical History - Pregnancies : 1 Para: 0 Medications and Allergies Amlodipine Besylate 2.5 mg PO DAILY 06/21/18 [History] Furosemide [Lasix] 20 mg PO DAILY 06/21/18 [History] Metoprolol Succinate [Toprol Xl] 25 mg PO DAILY 06/21/18 [History] Omeprazole [PriLOSEC] 40 mg PO DAILY 06/21/18 [History] Venlafaxine XR (24 HR) [Effexor Xr] 150 mg PO HS 06/21/18 [History] Ventolin Hfa 108 mcg IH Q6HR PRN 06/21/18 [History] buPROPion HCl [Zyban] 300 mg PO DAILY 06/21/18 [History] clonazePAM [Clonazepam] 0.5 mg PO HS 06/21/18 [History] Rivaroxaban [Xarelto] 20 mg PO DAILY 12/02/18 [History] Allergy/AdvReac Type Severity Reaction Status Date / Time ciprofloxacin [From Cipro] AdvReac Rash Verified 12/02/18 20:06 Penicillins [PCN] AdvReac See Verified 12/02/18 20:06 Comments sertraline [From Zoloft] AdvReac Confusion Verified 12/02/18 20:06 Sulfa (Sulfonamide AdvReac Rash Verified 12/02/18 20:06 Antibiotics) Review of System OB All systems PM: reviewed and no additional remarkable complaints except as stated Exam - Vital Signs Vital signs: Initial Vital Signs Temp Pulse Resp BP Pulse Ox 98.4 F 89 18 138/69 100 12/02/18 16:45 12/02/18 16:45 12/02/18 16:45 12/02/18 16:45 12/02/18 16:45 - Constitutional Constitutional: other (pale) - HEENT HEENT: PERRL - Neck Neck exam: nuchal rigidity - Lungs Respiratory exam: CTAB - Cardiovascular Cardiovascular exam: RRR - Abdomen Abdomen: Present: non tender Results Result Diagrams: 12/02/18 17:51 12/02/18 17:51 Abnormal lab results RBC 1.78 M/mcL (3.82-4.97) L 12/02/18 17:51 Hgb 4.6 g/dL (11.5-15.4) L* 12/02/18 17:51 Hct 15.6 % (35.3-44.9) L 12/02/18 17:51 MCH 25.8 pg (28.0-33.3) L 12/02/18 17:51 MCHC 29.5 g/dL (31.6-35.5) L 12/02/18 17:51 RDW 14.8 % (11.5-14.5) H 12/02/18 17:51 Nucleated RBCs/100 WBC 0.5 /100 WBC (0) H 12/02/18 17:51 PT 22.8 Seconds (9.4-12.1) H 12/02/18 17:51 Carbon Dioxide 21 mEq/L (23-29) L 12/02/18 17:51 Est GFR (Non-Af Amer) 58 (> 60) L 12/02/18 17:51 Glucose 107 mg/dL (70-105) H 12/02/18 17:51 Crossmatch See Detail 12/02/18 17:52 All other labs normal.
[2018-12-03] MEDS ORDERED: 0.9 % Sodium Chloride 250 ML ONE ×2 (02:05→05:02)
[2018-12-03 02:10] LABS: Basophils % 0.2 %; Eosinophils # 0.1 K/mcL (0.0-0.6); Eosinophils % 0.6 %; Hematocrit 22.9 % (35.3-44.9); Immature Granulocytes % 0.6 % (0-4); Lymphocytes # 1.9 K/mcL (0.6-4.6); Lymphocytes % 22.9 %; Mean Corpuscular HGB Conc 31.4 g/dL (31.6-35.5); Mean Corpuscular Hemoglobin 27.3 pg (28.0-33.3); Mean Corpuscular Volume 86.7 fL (83.0-100.0); Mean Platelet Volume 9.3 fL (9.4-12.4); Monocytes # 0.6 K/mcL (0.0-1.3); Monocytes % 7.3 %; Neutrophils # 5.8 K/mcL (1.6-8.9); Nucleated Red Blood Cells 0.8 /100 WBC (0); Platelet Count 333 K/mcL (140-400); Red Blood Count 2.64 M/mcL (3.82-4.97); Red Cell Distribution Width 14.2 % (11.5-14.5); Segmented Neutrophils % 68.4 %
[2018-12-03 02:11] LABS: Hemoglobin 7.2 g/dL (11.5-15.4)
--- NOTE | 2018-12-03 07:05 | OB/GYN Progress Note ---
Date of Encounter: 12/03/18 Time of Encounter: 07:01 - Assessment and Plan (1) Vaginal bleeding Current Visit: Yes Status: Acute 58 y/o with improved vaginal bleeding, possible submucosal fibroid vs endometrial polyp vs endometrial malignancy Plan: she'll continue with medroxyprogesterone 20mg TID x 7 days, hold off on her Xarelto, pain management, ok for reg diet, check CBC 4 hrs after 2 unit of blood, will discharge tomorrow Subjective - Subjective Interval history: I rounded on patient this AM and she's doing well. Her Hgb after the 1st 2 units has increased to 7. She's getting the second unit now. Her bleeding has improved significantly. Objective - Vital Signs Latest vital signs: Vital Signs Temp Pulse Resp BP Pulse Ox 12/03/18 05:40 98.4 F 66 16 103/57 96 12/03/18 05:25 98.3 F 77 16 136/68 97 12/03/18 05:09 98.4 F 78 15 109/61 95 12/03/18 02:34 98.4 F 72 15 137/73 98 12/03/18 02:19 98.2 F 79 16 141/69 97 12/03/18 01:34 98.3 F 76 14 114/57 96 12/03/18 01:05 98.4 F 78 15 113/61 95 12/02/18 23:06 98.6 F 79 14 132/69 100 12/02/18 22:51 98.5 F 80 18 98 12/02/18 22:50 141/67 12/02/18 22:31 98.3 F 79 15 128/75 100 12/02/18 21:17 77 16 133/68 100 12/02/18 21:06 74 16 135/74 100 12/02/18 20:31 77 16 102/67 100 12/02/18 20:08 98.1 F 73 16 118/57 100 12/02/18 19:54 98.6 F 75 16 119/62 100 12/02/18 19:12 83 16 139/73 100 12/02/18 16:45 98.4 F 89 18 138/69 100 Intake and Output 12/02/18 12/02/18 12/03/18 15:59 23:59 07:59 Intake Total 353 / 353 Output Total 950 / 950 Balance 1 / 1 - -597 Intake: Blood Product Rbcs Leuko Poor As-1 Unit [id number] Rbcs Leuko Poor As-1 Unit 0 / 0 [id number] Rbcs Leuko Poor As-1 Unit [id number] Rbcs Leuko Poor As-3 2nd Unit 351 / 351 [id number] Output: Urine 950 / 950 Other: Weight 106.594 kg - I&O's I&O's: Intake & Output 11/30/18 12/01/18 12/02/18 12/03/18 23:59 23:59 23:59 23:59 Intake Total Output Total 950 / 950 Balance - / -597 Weight 106.594 kg - Exam Lungs: bilateral: normal Chest: Normal S1, Normal S2 Extremities: Present: normal Abdomen: Present: normal appearance - Labs Labs: Abnormal lab results RBC 2.64 M/mcL (3.82-4.97) L 12/03/18 01:57 Hgb 7.2 g/dL (11.5-15.4) L D 12/03/18 01:57 Hct 22.9 % (35.3-44.9) L 12/03/18 01:57 MCH 27.3 pg (28.0-33.3) L 12/03/18 01:57 MCHC 31.4 g/dL (31.6-35.5) L 12/03/18 01:57 RDW 14.8 % (11.5-14.5) H 12/02/18 17:51 MPV 9.3 fL (9.4-12.4) L 12/03/18 01:57 Nucleated RBCs/100 WBC 0.8 /100 WBC (0) H 12/03/18 01:57 PT 22.8 Seconds (9.4-12.1) H 12/02/18 17:51 Carbon Dioxide 21 mEq/L (23-29) L 12/02/18 17:51 Est GFR (Non-Af Amer) 58 (> 60) L 12/02/18 17:51 Glucose 107 mg/dL (70-105) H 12/02/18 17:51 Crossmatch See Detail 12/02/18 17:52 Consult Discharge Plan - Plan Referrals: Esperanza Gutierrez, CANDIDO [Primary Care Provider] -
[2018-12-03] MEDS: amLODIPine 5 MG TABLET PO SCH (11:24)
[2018-12-03] MEDS: Metoprolol XL (24 HR) Succ 25 MG TAB.ER.24H PO SCH (11:26)
[2018-12-03] MEDS: BuPROPion SR (12 HR) 150 MG TABLET PO SCH (11:26)
[2018-12-03 13:53] LABS: Basophils % 0.4 %; Eosinophils # 0.1 K/mcL (0.0-0.6); Eosinophils % 0.9 %; Hematocrit 26.9 % (35.3-44.9); Hemoglobin 8.7 g/dL (11.5-15.4); Immature Granulocytes % 0.4 % (0-4); Lymphocytes # 2.2 K/mcL (0.6-4.6); Lymphocytes % 20.6 %; Mean Corpuscular HGB Conc 32.3 g/dL (31.6-35.5); Mean Corpuscular Hemoglobin 28.4 pg (28.0-33.3); Mean Corpuscular Volume 87.9 fL (83.0-100.0); Mean Platelet Volume 9.8 fL (9.4-12.4); Monocytes # 0.9 K/mcL (0.0-1.3); Monocytes % 8.1 %; Neutrophils # 7.3 K/mcL (1.6-8.9); Nucleated Red Blood Cells 0.7 /100 WBC (0); Platelet Count 306 K/mcL (140-400); Red Blood Count 3.06 M/mcL (3.82-4.97); Red Cell Distribution Width 14.3 % (11.5-14.5); Segmented Neutrophils % 69.6 %
[2018-12-03] MEDS ORDERED: Venlafaxine XR (24 HR) 150 MG CAP.ER.24H PO SCH (21:00)
[2018-12-03] MEDS ORDERED: clonazePAM 0.5 MG TABLET PO SCH (21:00)
[2018-12-04] MEDS: BuPROPion SR (12 HR) 150 MG TABLET PO SCH (08:10)
[2018-12-04] MEDS: Metoprolol XL (24 HR) Succ 25 MG TAB.ER.24H PO SCH (08:10)
[2018-12-04] MEDS: amLODIPine 5 MG TABLET PO SCH (08:10)
[2018-12-04 08:23] VITALS: BP 128/77
--- NOTE | 2018-12-04 10:02 | Discharge Summary ---
Date of Encounter: 12/04/18 Time of Encounter: 09:59 - Discharge Diagnosis (1) Vaginal bleeding Priority: Primary Status: Acute Comments: 58 y/o with resolved vaginal bleeding s/p 2 units transfused PRBC, Plan: Patient is doing well, ambulating without issues, she'll continue with medroxyprogesterone for the next 5 days, ok for discharge after breakfast, she's scheduled to see me this week - Discharge Medications Prescriptions: No Action clonazePAM [Clonazepam] 0.5 mg PO HS Amlodipine Besylate 2.5 mg PO DAILY Metoprolol Succinate [Toprol Xl] 25 mg PO DAILY Venlafaxine XR (24 HR) [Effexor Xr] 150 mg PO HS buPROPion HCl [Zyban] 300 mg PO DAILY Furosemide [Lasix] 20 mg PO DAILY Ventolin Hfa 108 mcg IH Q6HR PRN PRN Reason: Allergy Symptoms Omeprazole [PriLOSEC] 40 mg PO DAILY Rivaroxaban [Xarelto] 20 mg PO DAILY Home Medications: Amlodipine Besylate 2.5 mg PO DAILY 06/21/18 [History] Furosemide [Lasix] 20 mg PO DAILY 06/21/18 [History] Metoprolol Succinate [Toprol Xl] 25 mg PO DAILY 06/21/18 [History] Omeprazole [PriLOSEC] 40 mg PO DAILY 06/21/18 [History] Venlafaxine XR (24 HR) [Effexor Xr] 150 mg PO HS 06/21/18 [History] Ventolin Hfa 108 mcg IH Q6HR PRN 06/21/18 [History] buPROPion HCl [Zyban] 300 mg PO DAILY 06/21/18 [History] clonazePAM [Clonazepam] 0.5 mg PO HS 06/21/18 [History] Rivaroxaban [Xarelto] 20 mg PO DAILY 12/02/18 [History] Allergies/Adverse Reactions: Allergy/AdvReac Type Severity Reaction Status Date / Time ciprofloxacin [From Cipro] AdvReac Rash Verified 12/02/18 20:06 Penicillins [PCN] AdvReac See Verified 12/02/18 20:06 Comments sertraline [From Zoloft] AdvReac Confusion Verified 12/02/18 20:06 Sulfa (Sulfonamide AdvReac Rash Verified 12/02/18 20:06 Antibiotics) Data Procedures and tests throughout hospitalization: Laboratory Tests 12/02/18 12/02/18 12/02/18 17:51 17:51 17:51 WBC 8.4 RBC 1.78 L Hgb 4.6 L* Hct 15.6 L MCV 87.6 MCH 25.8 L MCHC 29.5 L RDW 14.8 H Plt Count 348 MPV 9.4 Immature Gran % 0.5 Seg Neutrophils % 77.7 Lymphocytes % 14.3 Monocytes % 6.7 Eosinophils % 0.6 Basophils % 0.2 Neutrophils # 6.5 Lymphocytes # 1.2 Monocytes # 0.6 Eosinophils # 0.1 Basophils # 0.0 Nucleated RBCs/100 WBC 0.5 H PT 22.8 H INR 2.0 APTT 34.5 Sodium 137 Potassium 4.0 Chloride 106 Carbon Dioxide 21 L BUN 13 Creatinine 0.98 Est GFR ( Amer) > 60 Est GFR (Non-Af Amer) 58 L BUN/Creatinine Ratio 13 Glucose 107 H Calculated Osmolality 285 Calcium 8.6 Troponin I < 0.03 Blood Type Antibody Screen Crossmatch 12/02/18 12/03/18 12/03/18 17:52 01:57 13:16 WBC 8.5 10.4 RBC 2.64 L 3.06 L Hgb 7.2 L D 8.7 L D Hct 22.9 L 26.9 L MCV 86.7 87.9 MCH 27.3 L 28.4 MCHC 31.4 L 32.3 RDW 14.2 14.3 Plt Count 333 306 MPV 9.3 L 9.8 Immature Gran % 0.6 0.4 Seg Neutrophils % 68.4 69.6 Lymphocytes % 22.9 20.6 Monocytes % 7.3 8.1 Eosinophils % 0.6 0.9 Basophils % 0.2 0.4 Neutrophils # 5.8 7.3 Lymphocytes # 1.9 2.2 Monocytes # 0.6 0.9 Eosinophils # 0.1 0.1 Basophils # 0.0 0.0 Nucleated RBCs/100 WBC 0.8 H 0.7 H PT INR APTT Sodium Potassium Chloride Carbon Dioxide BUN Creatinine Est GFR ( Amer) Est GFR (Non-Af Amer) BUN/Creatinine Ratio Glucose Calculated Osmolality Calcium Troponin I Blood Type B POSITIVE Antibody Screen NEGATIVE Crossmatch See Detail Labs on day of discharge: Labs from last 24 hours 12/03/18 12/02/18 13:16 17:52 WBC 10.4 RBC 3.06 L Hgb 8.7 L D Hct 26.9 L MCV 87.9 MCH 28.4 MCHC 32.3 RDW 14.3 Plt Count 306 MPV 9.8 Immature Gran % 0.4 Seg Neutrophils % 69.6 Lymphocytes % 20.6 Monocytes % 8.1 Eosinophils % 0.9 Basophils % 0.4 Neutrophils # 7.3 Lymphocytes # 2.2 Monocytes # 0.9 Eosinophils # 0.1 Basophils # 0.0 Nucleated RBCs/100 WBC 0.7 H Crossmatch See Detail - Impressions ITS Impressions Chest X-Ray 12/02/18 17:53 IMPRESSION: Cardiomegaly. No radiographic evidence of acute pulmonary disease. D/ / Deandre Asencio / Deandre Asencio Interpreting Provider: Deandre Asencio Pelvis Ultrasound 12/02/18 17:53 IMPRESSION: Abnormal appearance of the uterus. Adenomyosis is considered. Malignancy of the endometrium with invasion into the myometrium also is in the differential diagnosis, versus polyposis of the endometrium, or submucosal fibroid. Recommend further evaluation with a pelvic MRI examination. Ovaries could not be definitively visualized by ultrasound. 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
--- NOTE | 2018-12-04 12:57 | Electrocardiograph Report ---
[place] [id number] Test Date: 2018-12-02 Pat Name: Diana Cartagena Department: [id number] F Seafood Packer: : [id number] Requested By: Omer Villalobos Order Number: [id number] Reading MD: Dre Hickey Measurements Intervals [place] Rate: 79 P: 51 AL: 168 QRS: 48 QRSD: 92 T: 39 QT: 451 QTc: 518 Interpretive Statements Sinus rhythm Low voltage, precordial leads Nondiagnostic ST depression Prolonged QT interval Electronically Signed On 12-04-2018 12:56:04 EDT by Dre Hickey
== END 2018-12-04 11:20 | disposition home or self-care (01) | DRG 761 ==
LOC: 1NENUPED 16:43 → EMEROOARM 16:43 → 1NENUPED 22:00
PROVIDERS: ADMIT Student in an Organized Health Care Education/Training Program; ATTEND Student in an Organized Health Care Education/Training Program

== ENCOUNTER 2019-02-11 04:10 | Inpatient (IN) ==
[2019-02-11] MEDS ORDERED: 0.9 % Sodium Chloride 500 ML IVC ONE (04:17)
[2019-02-11] MEDS ORDERED: Aspirin 325 MG TABLET PO ONE (04:27)
[2019-02-11] MEDS: Nitroglycerin 0.4 MG TAB.SUBL SL SCH ×3 (04:51→05:12)
[2019-02-11 05:29] LABS: Basophils % 0.3 %; Eosinophils # 0.1 K/mcL (0.0-0.6); Eosinophils % 0.9 %; Hematocrit 36.2 % (35.3-44.9); Hemoglobin 11.7 g/dL (11.5-15.4); Immature Granulocytes % 0.4 % (0-4); Lymphocytes # 1.4 K/mcL (0.6-4.6); Lymphocytes % 12.5 %; Mean Corpuscular HGB Conc 32.3 g/dL (31.6-35.5); Mean Corpuscular Hemoglobin 27.6 pg (28.0-33.3); Mean Corpuscular Volume 85.4 fL (83.0-100.0); Mean Platelet Volume 9.5 fL (9.4-12.4); Monocytes # 0.9 K/mcL (0.0-1.3); Monocytes % 7.7 %; Neutrophils # 8.9 K/mcL (1.6-8.9); Platelet Count 235 K/mcL (140-400); Red Blood Count 4.24 M/mcL (3.82-4.97); Red Cell Distribution Width 13.9 % (11.5-14.5); Segmented Neutrophils % 78.2 %; White Blood Count 11.4 K/mcL (4.3-11.1)
[2019-02-11 05:37] LABS: Prothrombin Time 11.6 Seconds (9.4-12.1)
[2019-02-11 05:52] LABS: Albumin 3.9 g/dL (3.5-5.7); Albumin/Globulin Ratio 1.6 (1.1-2.2); Bilirubin,Direct 0.1 mg/dL (0.0-0.2); Bilirubin,Indirect 0.3 mg/dL (0.0-1.2); Bilirubin,Total 0.4 mg/dL (0.3-1.0); Globulin 2.4 g/dL (2.4-3.5); Total Protein 6.3 g/dL (6.4-8.9)
[2019-02-11 05:54] LABS: BUN/Creatinine Ratio 11 (6-26); Blood Urea Nitrogen 12 mg/dL (6-20); Calcium 8.7 mg/dL (8.6-10.3); Carbon Dioxide 21 mEq/L (23-29); Chloride 109 mEq/L (98-107); Glucose 118 mg/dL (70-105); Osmolality,Calculated 293 (280-300); Potassium 3.4 mEq/L (3.5-5.1); Sodium 141 mEq/L (136-145); Troponin I < 0.03 ng/mL (< 0.04); eGFR For African Americans > 60 (> 60); eGFR For Non-African Americans 51 (> 60)
[2019-02-11] MEDS ORDERED: Isovue-370 500 ML BOTTLE IVP ONE (06:09)
[2019-02-11] MEDS ORDERED: Ondansetron 4 MG/2 ML VIAL IVP ONE (06:16)
[2019-02-11] MEDS ORDERED: *HR* Heparin 5,000 UNIT/ML VIAL IVP PRN ×2 (07:41)
[2019-02-11] MEDS ORDERED: *HR* Heparin 5,000 UNIT/ML VIAL IVP ONE (07:41)
[2019-02-11] MEDS: Morphine Sulfate 2 MG/ML SYRINGE IVP ONE ×2 (08:03→08:11)
[2019-02-11] MEDS: Heparin 25,000 UNIT/250 ML D5W 25,000 UNIT/250 ML IV.SOLN IVC SCH (08:04)
[2019-02-11] MEDS ORDERED: Morphine Sulfate 2 MG/ML SYRINGE IVP ONE (08:10)
[2019-02-11 08:35] LABS: Hematocrit 37.3 % (35.3-44.9); Hemoglobin 11.9 g/dL (11.5-15.4); Mean Corpuscular HGB Conc 31.9 g/dL (31.6-35.5); Mean Corpuscular Hemoglobin 27.7 pg (28.0-33.3); Mean Corpuscular Volume 86.7 fL (83.0-100.0); Mean Platelet Volume 10.2 fL (9.4-12.4); Platelet Count 269 K/mcL (140-400); Red Cell Distribution Width 13.7 % (11.5-14.5); White Blood Count 10.5 K/mcL (4.3-11.1)
[2019-02-11 08:41] LABS: Heparin anti-factor XA UFH 0.03 IU/mL (0.30-0.70); Prothrombin Time 11.9 Seconds (9.4-12.1)
[2019-02-11] MEDS ORDERED: Naloxone 0.4 MG/ML INJ IVP PRN (09:10)
[2019-02-11] MEDS ORDERED: Acetaminophen 325 MG TABLET PO PRN (09:10)
[2019-02-11] MEDS: clonazePAM 0.5 MG TABLET PO SCH (21:06)
[2019-02-11] MEDS: Venlafaxine XR (24 HR) 150 MG CAP.ER.24H PO SCH (21:06)
[2019-02-12 05:02] LABS: Basophils % 0.5 %; Eosinophils # 0.1 K/mcL (0.0-0.6); Eosinophils % 1.5 %; Hematocrit 36.4 % (35.3-44.9); Hemoglobin 11.6 g/dL (11.5-15.4); Immature Granulocytes % 0.4 % (0-4); Lymphocytes # 2.3 K/mcL (0.6-4.6); Lymphocytes % 27.9 %; Mean Corpuscular HGB Conc 31.9 g/dL (31.6-35.5); Mean Corpuscular Hemoglobin 27.4 pg (28.0-33.3); Mean Corpuscular Volume 85.8 fL (83.0-100.0); Mean Platelet Volume 9.7 fL (9.4-12.4); Monocytes # 0.9 K/mcL (0.0-1.3); Monocytes % 10.3 %; Neutrophils # 4.9 K/mcL (1.6-8.9); Platelet Count 230 K/mcL (140-400); Red Blood Count 4.24 M/mcL (3.82-4.97); Segmented Neutrophils % 59.4 %; White Blood Count 8.3 K/mcL (4.3-11.1)
[2019-02-12 05:09] LABS: Heparin anti-factor XA UFH 0.44 IU/mL (0.30-0.70)
[2019-02-12] MEDS: Heparin 25,000 UNIT/250 ML D5W 25,000 UNIT/250 ML IV.SOLN IVC SCH ×2 (05:12→17:00)
[2019-02-12 05:21] LABS: BUN/Creatinine Ratio 13 (6-26); Blood Urea Nitrogen 14 mg/dL (6-20); Calcium 8.9 mg/dL (8.6-10.3); Carbon Dioxide 21 mEq/L (23-29); Chloride 109 mEq/L (98-107); Chol/HDL Ratio 3.1 (0-4.9); Cholesterol 140 mg/dL (< 200); Glucose 99 mg/dL (70-105); HDL Cholesterol 45 mg/dL (40-59); LDL Cholesterol,Calculated 75 mg/dL (0-99); Magnesium 2.1 mg/dL (1.6-2.6); Osmolality,Calculated 287 (280-300); Potassium 3.8 mEq/L (3.5-5.1); Sodium 138 mEq/L (136-145); Triglycerides 101 mg/dL (< 150); eGFR For African Americans > 60 (> 60); eGFR For Non-African Americans 53 (> 60)
[2019-02-12] MEDS: amLODIPine 5 MG TABLET PO SCH (08:08)
[2019-02-12] MEDS: BuPROPion XL (24 HR) 150 MG TABLET PO SCH (08:08)
[2019-02-12] MEDS: Metoprolol XL (24 HR) Succ 25 MG TAB.ER.24H PO SCH (08:09)
[2019-02-12 08:57] LABS: Estimated Average Glucose 111 mg/dl
[2019-02-12 14:44] LABS: Prothrombin Time 11.9 Seconds (9.4-12.1)
[2019-02-12] MEDS ORDERED: *HR* Warfarin 3 MG TABLET PO ONE (18:00)
[2019-02-12] MEDS ORDERED: Warfarin perPT PO PRN (18:00)
[2019-02-12] MEDS: clonazePAM 0.5 MG TABLET PO SCH (20:57)
[2019-02-12] MEDS: Venlafaxine XR (24 HR) 150 MG CAP.ER.24H PO SCH (20:57)
[2019-02-13 01:22] LABS: Hematocrit 37.5 % (35.3-44.9); Mean Corpuscular Hemoglobin 27.3 pg (28.0-33.3); Mean Corpuscular Volume 85.4 fL (83.0-100.0); Platelet Count 265 K/mcL (140-400); Red Blood Count 4.39 M/mcL (3.82-4.97); White Blood Count 8.4 K/mcL (4.3-11.1)
[2019-02-13 01:29] LABS: INR 1.1
[2019-02-13 01:30] LABS: Calcium 9.2 mg/dL (8.6-10.3); Potassium 4.2 mEq/L (3.5-5.1)
[2019-02-13] MEDS: Heparin 25,000 UNIT/250 ML D5W 25,000 UNIT/250 ML IV.SOLN IVC SCH (06:35)
[2019-02-13] MEDS: amLODIPine 5 MG TABLET PO SCH (08:56)
[2019-02-13] MEDS: BuPROPion XL (24 HR) 150 MG TABLET PO SCH (08:58)
[2019-02-13] MEDS: Metoprolol XL (24 HR) Succ 25 MG TAB.ER.24H PO SCH (08:58)
[2019-02-13] MEDS ORDERED: 0.9 % Sodium Chloride 1,000 ML IVC SCH (15:15)
[2019-02-13] MEDS ORDERED: *HR* Warfarin 5 MG TABLET PO ONE (18:00)
[2019-02-13] MEDS: clonazePAM 0.5 MG TABLET PO SCH (20:25)
[2019-02-13] MEDS: Venlafaxine XR (24 HR) 150 MG CAP.ER.24H PO SCH (20:25)
[2019-02-14 06:29] LABS: Prothrombin Time 11.6 Seconds (9.4-12.1)
[2019-02-14] MEDS: BuPROPion XL (24 HR) 150 MG TABLET PO SCH (08:16)
[2019-02-14] MEDS: amLODIPine 5 MG TABLET PO SCH (08:16)
[2019-02-14] MEDS: Metoprolol XL (24 HR) Succ 25 MG TAB.ER.24H PO SCH (08:16)
[2019-02-14] MEDS: Heparin 25,000 UNIT/250 ML D5W 25,000 UNIT/250 ML IV.SOLN IVC SCH (08:18)
[2019-02-14 09:53] LABS: Hematocrit 37.5 % (35.3-44.9); Hemoglobin 12.3 g/dL (11.5-15.4); Mean Corpuscular HGB Conc 32.8 g/dL (31.6-35.5); Mean Corpuscular Hemoglobin 27.7 pg (28.0-33.3); Mean Corpuscular Volume 84.5 fL (83.0-100.0); Mean Platelet Volume 9.8 fL (9.4-12.4); Platelet Count 268 K/mcL (140-400); Red Blood Count 4.44 M/mcL (3.82-4.97); White Blood Count 7.2 K/mcL (4.3-11.1)
[2019-02-14 10:56] VITALS: BP 114/63
[2019-02-14] MEDS ORDERED: *HR* Enoxaparin 100 MG/ML SYRINGE SQ SCH (11:30)
[2019-02-14 13:08] LABS: BUN/Creatinine Ratio 15 (6-26); Blood Urea Nitrogen 15 mg/dL (6-20); Calcium 9.3 mg/dL (8.6-10.3); Carbon Dioxide 21 mEq/L (23-29); Chloride 110 mEq/L (98-107); Glucose 98 mg/dL (70-105); Osmolality,Calculated 289 (280-300); Potassium 3.9 mEq/L (3.5-5.1); Sodium 139 mEq/L (136-145); eGFR For African Americans > 60 (> 60); eGFR For Non-African Americans 56 (> 60)
[2019-02-15 09:57] LABS: ANA IgG by ELISA NONE DETECTED (None Detected)
[2019-02-15 20:12] LABS: FACV Specimen WHOLE BLOOD
[2019-02-16 09:02] LABS: Fac V Leiden R506Q Mut Result NEGATIVE
[2019-02-21 11:19] LABS: Antiphospholipid IgG High Spec 0 GPL (0-14); Antiphospholipid IgM High Spec 4 MPL (0-14)
== END 2019-02-14 13:29 | disposition home or self-care (01) | DRG 176 ==
LOC: EMEROOARM 04:10 → 3BNU 04:10 → SUATTDRO 08:33 → 3BNU 09:31
PROVIDERS: ADMIT Internal Medicine; ATTEND Family Medicine